=== PATIENT | male | born 1965 ===

== ENCOUNTER → 2024-02-05 | Outpatient (CLI) | payer SELFPAY | END | disposition home or self-care (01) | LOC: RAD 14:40 | PROVIDERS: ATTEND Specialist | DX: I25.9 Chronic ischemic heart disease, unspecified (principal); R07.89 Other chest pain; R00.1 Bradycardia, unspecified; R10.11 Right upper quadrant pain; R00.2 Palpitations | CPT/HCPCS: 93017 ==